=== PATIENT | male | born 1995 | race Caucasian/White ===

== ENCOUNTER 2017-03-24 22:45 | Emergency (ER) | payer OTHER ==
[~2017-03-24] VITALS: Ht 180.3 cm; Wt 120.1 kg
[2017-03-25 00:11] LABS: EOSINOPHIL COUNT 0.3 K/uL (0-0.3); HEMATOCRIT 38.6 % (38.0-50.0); IMMATURE GRANULOCYTE (%) 0.5 % (0.0-0.7); INSTRUMENT ABS NEUTROPHIL CT 3.7 K/uL; LYMPHOCYTE COUNT 1.8 K/uL (1.0-2.8); MCH 31.8 PG (29.0-34.0); MCV 90.8 FL (86-99); MEAN PLAT.VOLUME 9.7 uM^3 (9.0-12.4); MONOCYTE (%) 11.8 % (3-12); MONOCYTE COUNT 0.8 K/uL (0-0.8); NEUTROPHIL (%) 55.2 % (45-76); NEUTROPHIL COUNT 3.7 K/uL (1.8-6.4); PLATELET COUNT 145 K/uL (156-360); RBC DIS.WIDTH-CV 12.6 % (11.8-14.6); RBC DIS.WIDTH-SD 41.1 % (39-53); RED BLOOD COUNT 4.25 M/uL (4.00-5.50); WHITE BLOOD COUNT 6.6 K/uL (4.1-10.2)
[2017-03-25 00:22] LABS: CHLORIDE 108 mEq/L (99-109); POTASSIUM 3.7 mEq/L (3.7-5.4); SODIUM 141 mEq/L (136-147)
[2017-03-25 00:24] LABS: GLUCOSE 100 mg/dL (70-99)
[2017-03-25 00:25] LABS: ANION GAP 11 MEQ/L (2-14)
[2017-03-25 00:27] LABS: SERUM ETHYL ALCOHOL < 10 mg/dL
[2017-03-25 00:28] LABS: GFR ESTIMATE (CALCULATED) > 59 mL/min/
[2017-03-25 00:29] LABS: UREA NITROGEN (BUN) 13 mg/dL (9-23)
[2017-03-25 00:31] LABS: LIPASE 4 U/L (1.0-51.0)
[2017-03-25 05:15] VITALS: BP 128/96
[2017-03-26] MEDS ORDERED: TYLENOL WITH C1 EACH PO (15:05)
== END 2017-03-25 05:29 | disposition home or self-care (01) ==
LOC: TRA 22:45
PROVIDERS: Emergency Medicine
PROC: 0HQ0XZZ Repair Scalp Skin, External Approach (ICD-10-PCS; principal; 2017-03-25)
DX: S01.01XA Laceration without foreign body of scalp, initial encounter (principal); W19.XXXA Unspecified fall, initial encounter; Y92.488 Other paved roadways as the place of occurrence of the external cause; F19.10 Other psychoactive substance abuse, uncomplicated; F13.10 Sedative, hypnotic or anxiolytic abuse, uncomplicated
CPT/HCPCS: 70450; 70486; 71010; 72125; 80048; 81003; 83690; 85025; 86900; 86901; 93005; 99281; 99284; G0480; J7030

== ENCOUNTER 2017-03-26 11:13 | Emergency (ER) | payer OTHER ==
[~2017-03-26] VITALS: Ht 180.3 cm; Wt 112.3 kg
[2017-03-26 14:24] LABS: EOSINOPHIL COUNT 0.4 K/uL (0-0.3); HEMATOCRIT 40.9 % (38.0-50.0); IMMATURE GRANULOCYTE (%) 0.4 % (0.0-0.7); INSTRUMENT ABS NEUTROPHIL CT 4.2 K/uL; LYMPHOCYTE COUNT 2.5 K/uL (1.0-2.8); MCH 31.2 PG (29.0-34.0); MCHC 34.5 G/DL (30.0-36.0); MCV 90.5 FL (86-99); MEAN PLAT.VOLUME 9.5 uM^3 (9.0-12.4); MONOCYTE (%) 11.4 % (3-12); MONOCYTE COUNT 0.9 K/uL (0-0.8); NEUTROPHIL (%) 52.3 % (45-76); NEUTROPHIL COUNT 4.2 K/uL (1.8-6.4); PLATELET COUNT 160 K/uL (156-360); RBC DIS.WIDTH-CV 12.6 % (11.8-14.6); RBC DIS.WIDTH-SD 41.1 % (39-53); RED BLOOD COUNT 4.52 M/uL (4.00-5.50); WHITE BLOOD COUNT 8.1 K/uL (4.1-10.2)
[2017-03-26 14:34] LABS: CHLORIDE 108 mEq/L (99-109); POTASSIUM 3.7 mEq/L (3.7-5.4); SODIUM 139 mEq/L (136-147)
[2017-03-26 14:35] LABS: GLUCOSE 100 mg/dL (70-99)
[2017-03-26 14:37] LABS: ANION GAP 9 MEQ/L (2-14)
[2017-03-26 14:39] LABS: GFR ESTIMATE (CALCULATED) > 59 mL/min/
[2017-03-26 14:40] LABS: UREA NITROGEN (BUN) 10 mg/dL (9-23)
[2017-03-26] MEDS ORDERED: TYLENOL WITH C1 EACH PO (15:05)
[2017-03-26 15:22] VITALS: BP 141/86
== END 2017-03-26 15:23 | disposition home or self-care (01) ==
LOC: EME 11:13
PROVIDERS: Physician Assistant
DX: S06.0X0A Concussion without loss of consciousness, initial encounter (principal); T14.8 Other injury of unspecified body region; Y08.09XA Assault by strike by other specified type of sport equipment, initial encounter; F17.200 Nicotine dependence, unspecified, uncomplicated
CPT/HCPCS: 80048; 85025; 99281; 99284

== ENCOUNTER 2017-11-08 20:33 | Emergency (ER) | payer OTHER ==
[~2017-11-08] VITALS: Ht 182.9 cm; Wt 106.8 kg
[~2017-11-08 20:33] MED LIST: TYLENOL WITH C1 EACH PO
[2017-11-08 22:15] VITALS: BP 118/63
== END 2017-11-08 22:16 ==
LOC: EME 20:33
DX: T40.1X1A Poisoning by heroin, accidental (unintentional), initial encounter (principal); F17.200 Nicotine dependence, unspecified, uncomplicated
CPT/HCPCS: 99281; 99284; J2310

== ENCOUNTER 2018-04-21 15:43 | Emergency (ER) | payer OTHER ==
[~2018-04-21] VITALS: Ht 180.3 cm; Wt 108.6 kg
[2018-04-21] MEDS ORDERED: MOTRIN600 MG PO (17:24)
[2018-04-21 18:01] VITALS: BP 122/79
== END 2018-04-21 18:02 | disposition home or self-care (01) ==
LOC: EME 15:43
DX: S93.401A Sprain of unspecified ligament of right ankle, initial encounter (principal); X50.9XXA Other and unspecified overexertion or strenuous movements or postures, initial encounter; W19.XXXA Unspecified fall, initial encounter; Y93.01 Activity, walking, marching and hiking; F17.200 Nicotine dependence, unspecified, uncomplicated
CPT/HCPCS: 73610; 99281; 99284